=== PATIENT | female | born 1950 | race Caucasian/White ===

== ENCOUNTER 2016-08-10 14:24 | Emergency (ER) | payer MEDICARE, OTHER ==
[2016-08-10 14:20] LABS: BASOPHILS 0.2 %; BASOPHILS ABSOLUTE 0.03 10/3/uL (0.0-0.16); EOSINOPHILS 0.8 %; EOSINOPHILS ABSOLUTE 0.13 10/3/uL (0.0-0.53); IMMATURE GRANULOCYTES 0.3 %; IMMATURE GRANULOCYTES ABSOLUTE 0.05 10/3/uL (0.0-0.11); LYMPHOCYTES 13.9 %; LYMPHOCYTES ABSOLUTE 2.17 10/3/uL (0.67-4.30); MEAN PLATELET VOLUME 10.9 fL (9.2-13.0); MONOCYTES 6.6 %; MONOCYTES ABSOLUTE 1.04 10/3/uL (0.21-1.20); NEUTROPHILS 78.2 %; NEUTROPHILS ABSOLUTE 12.22 10/3/uL (2.02-8.40); RBC DISTRIBUTION WIDTH 14.6 % (12.0-16.0); RED CELL COUNT 5.76 10/6/uL (4.0-5.6)
[2016-08-10 14:24] LABS: ER CBC TAT 0 Hrs 08 Mins; HEMATOCRIT 47.6 % (36.0-48.0); HEMOGLOBIN 16.7 g/dL (12.0-16.0); MANUAL DIFF NO %; MEAN CORPUS HGB CONC 35.1 g/dL (32.0-36.0); MEAN CORPUSCULAR VOLUME 82.6 fL (80-100); PLATELET COUNT 278 10/3/uL (150-400); WHITE BLOOD CELLS 15.6 10/3/uL (4.5-10.5)
[~2016-08-10 14:24] MED LIST: ARMOUR THYRO120 MG PO; B121000P IM; CALTRA600D PO; ESTRATEST; ESTROGEN VA; FISH-EPA1000 MG PO; HEMOCYTET PO; HORMONE REPLACEMENT SQ; LUNESTA2 M1 PO; METAMUCIL CAN7 OZ PO; NATURE THROI PO; PROMETRIUM PO; SUPER B-C PO; SYN.15 PO; VITAMIN D1000 UNI1 PO; VITAMIN D31000 UNIT PO; [UNRECOGNIZED DRUG - OTHER] IM
[2016-08-10 14:36] LABS: A/G RATIO 0.9 (0.7-1.9); ALBUMIN 4.1 G/DL (3.5-5.0); ALKALINE PHOSPHATASE 91 U/L (45-117); BUN (BLOOD UREA NITROGEN) 14 MG/DL (6-23); CHLORIDE, SERUM 107 MMOL/L (96-112); CO2 (CARBON DIOXIDE) 27 MMOL/L (24-34); CREATININE 0.75 MG/DL (0.55-1.02); GFR AFRICAN AMERICAN 96 ML/MIN (>=60); GFR NON AFRICAN AMERICAN 83 ML/MIN (>=60); GLOBULIN 4.4 G/DL (2.5-4.1); GLUCOSE, SERUM 111 MG/DL (60-99); SGPT(ALT) 37 U/L (5-65); SODIUM, SERUM 138 MMOL/L (135-148); TOTAL BILIRUBIN 0.5 MG/DL (0-1.2); TOTAL PROTEIN 8.5 G/DL (6.0-8.5)
[2016-08-10 14:37] LABS: SGOT(AST) 49 U/L (5-40)
[2016-08-10 14:38] LABS: POTASSIUM, SERUM 5.4 MMOL/L (3.5-5.3)
[2016-08-10 14:42] LABS: ASCORBIC ACID (UR NOT ORDER) 40 (NEG); BILIRUBIN, URINE NEGATIVE (NEG); ER URINALYSIS TAT 0 Hrs 12 Mins; KETONE, URINE NEGATIVE (NEG); LEUKOCYTE ESTERASE(NOT OR LARGE (NEG); NITRITE (URINE) NEG (NEG); WBC (NOT ORDERED) (RFLEX) 6 (0-5)
== END 2016-08-10 17:34 | disposition home or self-care (01) ==
LOC: ER 14:24
PROVIDERS: Emergency Medicine
DX: K52.9 Noninfective gastroenteritis and colitis, unspecified (principal); G47.30 Sleep apnea, unspecified; D64.9 Anemia, unspecified; Z90.710 Acquired absence of both cervix and uterus; Z88.5 Allergy status to narcotic agent; Z79.899 Other long term (current) drug therapy
CPT/HCPCS: 74177; 80053; 81001; 83690; 85025; 87086; 96374; 99284; A9270-GY; J2405; Q9967